=== PATIENT | male | born 2000 | race Two or more races ===

== ENCOUNTER 2023-02-08 16:43 | Emergency (ER) | payer OTHER ==
[2023-02-08 16:57] VITALS: BMI 30.4
[2023-02-08] MEDS ORDERED: DIPHTH,PERTUSS(ACELL),TET 0.5 ML DISP.SYRIN IM ONE (17:09)
[2023-02-08] MEDS ORDERED: CEPHALEXIN MONOHYDRATE 500 MG CAPSULE (UD) PO ONE (17:42)
[2023-02-08] MEDS ORDERED: CEPHALEXIN MONOHYDRATE 500 MG CAPSULE (UD) ONE (18:21)
[2023-02-08 19:11] VITALS: BP 132/78; PULSE 85; RESP 20; TEMP 99
== END 2023-02-08 19:12 | disposition home or self-care (01) ==
LOC: JER 16:43
PROC: 0HQDXZZ Repair Right Lower Arm Skin, External Approach (ICD-10-PCS; principal; 2023-02-08)
PROC: 2W3CX1Z Immobilization of Right Lower Arm using Splint (ICD-10-PCS; 2023-02-08)
DX: S51.811A Laceration without foreign body of right forearm, initial encounter (principal); W31.2XXA Contact with powered woodworking and forming machines, initial encounter; Y99.0 Civilian activity done for income or pay
CPT/HCPCS: 99283-25